=== PATIENT | male | born 1960 | race Caucasian/White ===

== ENCOUNTER 2019-05-23 18:10 | Inpatient (IN) | payer OTHER, MEDICAID ==
[~2019-05-23] VITALS: Ht 175.3 cm; Wt 138.8 kg
[2019-05-23 18:11] VITALS: BP_SYST 127
[2019-05-23] MEDS ORDERED: IBUPROFEN 600 MG TABLET PO ONE (18:45)
[2019-05-23 19:07] LABS: BASOPHILS # (AUTO) 0.2 K/uL (0.0-0.2); BASOPHILS % (AUTO) 0.7 % (0.0-2.0); EOSINOPHILS # (AUTO) 0.3 K/uL (0.0-0.4); EOSINOPHILS % (AUTO) 1.5 % (0.0-4.0); HEMATOCRIT 44.1 % (36-54); HEMOGLOBIN 14.5 g/dL (14.0-18.0); LYMPHOCYTES # (AUTO) 3.1 K/uL (1.0-5.5); LYMPHOCYTES % (AUTO) 14.6 % (20.5-51.5); MEAN CORPUSCULAR HEMOGLOBIN 29 pg (27-31); MEAN CORPUSCULAR HGB CONC 33 % (32-36); MEAN CORPUSCULAR VOLUME 87 fL (79.0-98.0); MONOCYTES # (AUTO) 2.1 K/uL (0.0-1.0); MONOCYTES % (AUTO) 10.2 % (1.7-9.3); NEUTROPHILS # (AUTO) 15.3 K/uL (1.8-7.7); PLATELET COUNT (AUTO) 204 K/uL (130-430); RED CELL DISTRIBUTION WIDTH 14.8 % (9.0-15.0); WHITE BLOOD COUNT (AUTO) 20.9 K/uL (4.8-10.8)
[2019-05-23 19:17] LABS: CALCIUM 8.9 mg/dL (8.4-11.0); CREATININE 1.28 mg/dL (0.55-1.30); POTASSIUM 3.8 mmol/L (3.5-5.1)
[2019-05-23 19:23] LABS: INR 1.2 (0.80-1.20); PROTHROMBIN TIME 11.8 SECS (9.5-12.5); TOTAL BILIRUBIN 1.2 mg/dL (0.0-1.0)
[2019-05-23] MEDS ORDERED: cefTRIAXone 1 GM IVPB PREMIX 50 ML IV ONE (19:45)
[2019-05-23] MEDS ORDERED: GABA-531 PO (19:53)
[2019-05-23] MEDS ORDERED: MORP30TA PO (19:53)
[2019-05-23] MEDS ORDERED: LEVO25TA7 PO (19:53)
[2019-05-23] MEDS ORDERED: HYDR20TA PO (19:53)
[2019-05-23] MEDS ORDERED: NACL 0.9% 1,000 ML IV ONE (20:00)
[2019-05-23] MEDS ORDERED: HYDROCORTISONE SOD SUCC 100 MG/2 ML VIAL IVP ONE (20:00)
[2019-05-23] MEDS ORDERED: IOHEXOL 350 mgI/mL, 150 ML INFUS..BTL IV ONE (21:23)
[2019-05-23] MEDS ORDERED: IPRATROPIUM/ALBUTEROL SULFATE 3 ML AMPUL.NEB (DUONEB) INH PRN (23:30)
[2019-05-23] MEDS ORDERED: ENOXAPARIN SODIUM 40 MG/0.4 ML SYRINGE SUBCUT ONE (23:30)
[2019-05-23] MEDS ORDERED: TEMAZEPAM 15 MG CAPSULE PO PRN (23:45)
[2019-05-23] MEDS ORDERED: MORPHINE SULFATE 30 MG Immediate Release TABLET PO PRN (23:45)
[2019-05-23] MEDS ORDERED: ONDANSETRON HCL 4 MG/2 ML VIAL IVP PRN (23:45)
[2019-05-23 23:46] VITALS: BP_SYST 127
[2019-05-23 23:55] VITALS: BP_SYST 98
[2019-05-24] MEDS: HYDROCORTISONE SOD SUCC 100 MG/2 ML VIAL IVP SCH ×3 (00:30→12:14)
[2019-05-24] MEDS: IPRATROPIUM/ALBUTEROL SULFATE 3 ML AMPUL.NEB (DUONEB) INH SCH ×6 (04:16→23:11)
[2019-05-24] MEDS: LEVOTHYROXINE SODIUM 0.05 MG TABLET PO SCH (06:17)
[2019-05-24 08:00] VITALS: BP_SYST 103
[2019-05-24] MEDS: GABAPENTIN 300 MG CAPSULE PO SCH ×2 (08:46→20:42)
[2019-05-24] MEDS: MORPHINE SULFATE 30 MG Immediate Release TABLET PO SCH ×2 (08:46→20:43)
[2019-05-24] MEDS: NICOTINE 21 MG/24 HR PATCH.TD24 TD SCH (08:46)
[2019-05-24] MEDS: PANTOPRAZOLE SODIUM 40 MG TAB PO SCH (08:46)
[2019-05-24] MEDS: ENOXAPARIN SODIUM 40 MG/0.4 ML SYRINGE SUBCUT SCH ×2 (09:00→20:45)
[2019-05-24 09:47] LABS: BASOPHILS # (AUTO) 0.1 K/uL (0.0-0.2); BASOPHILS % (AUTO) 0.4 % (0.0-2.0); HEMATOCRIT 43.2 % (36-54); HEMOGLOBIN 14.6 g/dL (14.0-18.0); LYMPHOCYTES # (AUTO) 0.9 K/uL (1.0-5.5); LYMPHOCYTES % (AUTO) 5.3 % (20.5-51.5); MEAN CORPUSCULAR HEMOGLOBIN 29 pg (27-31); MEAN CORPUSCULAR HGB CONC 34 % (32-36); MEAN CORPUSCULAR VOLUME 86 fL (79.0-98.0); MONOCYTES # (AUTO) 0.3 K/uL (0.0-1.0); NEUTROPHILS # (AUTO) 15.4 K/uL (1.8-7.7); NEUTROPHILS % (AUTO) 92.3 % (40.0-70.0); PLATELET COUNT (AUTO) 209 K/uL (130-430); RED BLOOD CELL COUNT(AUTO) 5.03 MIL/uL (4.2-6.2); RED CELL DISTRIBUTION WIDTH 14.9 % (9.0-15.0); WHITE BLOOD COUNT (AUTO) 16.8 K/uL (4.8-10.8)
[2019-05-24 10:13] LABS: CALCIUM 9.1 mg/dL (8.4-11.0); CREATININE 1.34 mg/dL (0.55-1.30); POTASSIUM 3.6 mmol/L (3.5-5.1); TOTAL BILIRUBIN 0.8 mg/dL (0.0-1.0)
[2019-05-24] MEDS ORDERED: AZITHROMYCIN 250 MG TABLET PO ONE (10:45)
[2019-05-24 11:51] LABS: BILIRUBIN,URINE NEGATIVE (NEGATIVE); BLOOD, URINE NEGATIVE (NEGATIVE); CLARITY/URINE CLEAR (CLEAR); COLOR,URINE YELLOW (YELLOW); GLUCOSE,URINE NEGATIVE (NEGATIVE); KETONES,URINE NEGATIVE (NEGATIVE); LEUKOCYTE ESTERASE ,URINE NEGATIVE (NEGATIVE); NITRITE, URINE NEGATIVE (NEGATIVE); PROTEIN URINE 1+ (NEGATIVE)
[2019-05-24 12:18] VITALS: BP_SYST 118
[2019-05-24 16:37] VITALS: BP_SYST 122
[2019-05-24] MEDS ORDERED: GENTAMICIN 100 mg/50 mL NS 50 ML IV ONE (17:45)
[2019-05-24] MEDS ORDERED: FLUCONAZOLE 200 mg/ NS 100 ML IV SCH (17:45)
[2019-05-24 19:45] VITALS: BP_SYST 121
[2019-05-24] MEDS ORDERED: cefTRIAXone 1 GM in D5W 50 ML IV SCH (21:00)
[2019-05-25 01:15] VITALS: BP_SYST 119
[2019-05-25] MEDS: IPRATROPIUM/ALBUTEROL SULFATE 3 ML AMPUL.NEB (DUONEB) INH SCH ×3 (03:58→11:09)
[2019-05-25 06:30] LABS: CALCIUM 9.6 mg/dL (8.4-11.0); CREATININE 1.19 mg/dL (0.55-1.30); POTASSIUM 4.6 mmol/L (3.5-5.1)
[2019-05-25] MEDS: LEVOTHYROXINE SODIUM 0.05 MG TABLET PO SCH (06:33)
[2019-05-25 06:36] LABS: BASOPHILS # (AUTO) 0.1 K/uL (0.0-0.2); BASOPHILS % (AUTO) 0.4 % (0.0-2.0); HEMATOCRIT 39.7 % (36-54); HEMOGLOBIN 13.4 g/dL (14.0-18.0); LYMPHOCYTES # (AUTO) 1.4 K/uL (1.0-5.5); MEAN CORPUSCULAR HEMOGLOBIN 29 pg (27-31); MEAN CORPUSCULAR HGB CONC 34 % (32-36); MEAN CORPUSCULAR VOLUME 86 fL (79.0-98.0); MONOCYTES # (AUTO) 0.5 K/uL (0.0-1.0); MONOCYTES % (AUTO) 3.5 % (1.7-9.3); NEUTROPHILS % (AUTO) 86.1 % (40.0-70.0); PLATELET COUNT (AUTO) 209 K/uL (130-430); RED BLOOD CELL COUNT(AUTO) 4.61 MIL/uL (4.2-6.2); RED CELL DISTRIBUTION WIDTH 14.8 % (9.0-15.0); WHITE BLOOD COUNT (AUTO) 13.9 K/uL (4.8-10.8)
[2019-05-25 08:00] VITALS: BP_SYST 124
[2019-05-25] MEDS ORDERED: AZITHROMYCIN 250 MG TABLET PO SCH (09:00)
[2019-05-25] MEDS: NICOTINE 21 MG/24 HR PATCH.TD24 TD SCH (09:22)
[2019-05-25] MEDS: GABAPENTIN 300 MG CAPSULE PO SCH (09:22)
[2019-05-25] MEDS: MORPHINE SULFATE 30 MG Immediate Release TABLET PO SCH (09:23)
[2019-05-25] MEDS: PANTOPRAZOLE SODIUM 40 MG TAB PO SCH (09:24)
[2019-05-25 12:23] VITALS: BP_SYST 111
[2019-05-25] MEDS: HYDROCORTISONE SOD SUCC 100 MG/2 ML VIAL IVP SCH ×2 (13:10)
[2019-05-25 13:41] VITALS: BP_SYST 111
== END 2019-05-25 14:30 | disposition home or self-care (01) | DRG 871 ==
LOC: SED 18:10 → STU 22:50 → SMU 05-24 18:42
PROVIDERS: ADMIT Internal Medicine; ATTEND Internal Medicine
DX: A41.9 Sepsis, unspecified organism (principal); J15.6 Pneumonia due to other Gram-negative bacteria; J44.1 Chronic obstructive pulmonary disease with (acute) exacerbation; E27.40 Unspecified adrenocortical insufficiency; J44.0 Chronic obstructive pulmonary disease with (acute) lower respiratory infection; C64.9 Malignant neoplasm of unspecified kidney, except renal pelvis; Z68.42 Body mass index [BMI] 45.0-49.9, adult; C78.01 Secondary malignant neoplasm of right lung; E03.9 Hypothyroidism, unspecified; F17.210 Nicotine dependence, cigarettes, uncomplicated; I10 Essential (primary) hypertension; T38.0X5A Adverse effect of glucocorticoids and synthetic analogues, initial encounter; Z90.5 Acquired absence of kidney; Z85.528 Personal history of other malignant neoplasm of kidney; M54.9 Dorsalgia, unspecified; E66.9 Obesity, unspecified; F17.200 Nicotine dependence, unspecified, uncomplicated; G89.4 Chronic pain syndrome; Z72.89 Other problems related to lifestyle; Z56.0 Unemployment, unspecified; Y92.89 Other specified places as the place of occurrence of the external cause
CPT/HCPCS: 36415; 71045; 71275; 80048; 80053; 81003; 83605; 83735-TC; 84484; 85025; 85379; 85610-TC; 85730-TC; 87040-TC; 87086; 87449; 93005; 94640; 94760; 96365; 96375; 99285; G0378; J0696; J1450; J1580; J1650; J1720; J1956; J2274; J7030; J7060; J7620; Q0144; Q9967